=== PATIENT | male | born 1990 | race Caucasian/White ===

== ENCOUNTER 2019-01-06 14:22 | Outpatient (CLI) | payer OTHER ==
[2019-01-06 16:42] VITALS: BP 127/75
--- NOTE | 2019-01-06 16:42 | SLEEP CARE CONSULTATION ---
Information from patient questionnaire entered by Kristine Leblanc. I have reviewed and concur with the information entered by Kristine Leblanc. This document represents the service I personally performed and the decisions made by me, Juana Torres MD, [facility]. History of Present Illness Reason for Visit: New patient Chief Complaint: reports: Unrefreshed sleep, Snoring, Excessive daytime sleepiness, Observed pauses in breathing, Fatigue, Frequent awakenings at night Duration of Symptoms: 9 years Usual bedtime: 2130 Time it takes to fall asleep: under 5 minutes Snores at night: Yes (a lot) Observed to quit breathing while asleep: Yes Sleeps alone due to snoring: No Number of times waking at night: 3 Reasons for waking at night: reports: Snoring, Bathroom Toss, Turn, or Twitch while sleeping: Yes Recalls having dreams: Yes Usually gets out of bed at: 0545 Feels refreshed in the morning: No Morning headache: Yes Sleepy or fatigued during the day: Yes Ever fallen asleep while driving: No Takes day naps: No Dreams during day naps: No Prior sleep studies: No Additional HPI information: I had the pleasure of seeing Mr. Guy today regarding the possibility of him having a sleep disorder. As you know, he is a 28 year old gentleman who complains of loud snore, observed apneas, frequent awakenings, unrefreshed sleep, morning headache, and excessive daytime sleepiness for the past 9 years. - Parasomnia Symptoms Ever been unable to move upon waking from sleep: Yes Walks in sleep: No Talks in sleep: No Ever acted out dreams in sleep: No Ever felt weak in the knees when startled or emotional: No Bothered by creepy, crawly, restless sensations in legs: No Problems with memory or concentration: Yes Subjective Initial [place] Sleepiness Scale score: 5 Social History The patient's occupation is active . Patient is Single and lives in [place]. Have you smoked in the past 12 months: No Alcohol use: Yes Alcohol amount and frequency: 1 drink/weekend Caffeine use: Yes Caffeine amount and frequency: 2/day Family History Family history of sleep disordered breathing: Yes Family Hx Sleep Apnea: Father: Sleep apnea - Treated (uncle), Grandparent: Sleep apnea - Treated, Other: Sleep apnea - Treated Allergies and Home Medications Drug allergies reviewed: Yes Home medication list reviewed: Yes Review of Systems Cardiovascular: denies: high blood pressure, palpitations, chest pain, irregular heart rate or pulse, leg or foot swelling, have to sleep sitting up, other Respiratory: denies: shortness of breath, wheeze, sputum production, chronic cough, other Gastrointestinal: denies: heartburn, difficulty swallowing, nausea, vomitting, diarrhea, abdominal pain, other Urinary: denies: incontinence, frequency, urgency, impotence, other Neurological: denies: headaches, seizure, head trauma, disorientation, speech dysfunction, gait or balance problems, fainting or unconsciousness, other Psychiatric: denies: Attention Deficit Hyperactivity, anxiety, depression, mood disorder, claustrophobia, other Ear/Nose/Throat: denies: nasal congestion, sinus problems, nose bleeds, dry mouth/throat, hoarseness, injury to nose, tonsillectomy, wisdom teeth removed, other Endocrine: denies: thyroid disease, history of goiter, sluggishness, too hot or cold, excessive thirst, increased appetite, increased urination, unexplained weakness, other Musculoskeletal: denies: joint pain, neck pain, back pain, joint swelling, muscle pain or cramping, mobility problems, other Immunologic: denies: sneezing, rash, itching, allergies to food or environment, other Physical Exam Vital signs obtained and entered by: Dr. Torres Blood Pressure: 127/75 Cuff size: regular Heart Rate: 59 O2 Saturation: 98 Height: 5 ft 10 in Weight: 191 lb Body Mass Index: 27.3 BMI Classification: Overweight Neck circumference: 15.5 Mood/affect: normal HEENT: No craniofacial malformation Nostrils: patent to airflow Turbinates: normal Septum: midline Mouth and throat: narrow oropharynx Soft palate: long Hard palate: normal Uvula: normal Uvula visualization: 50% Mallampati Class II Tongue: normal in size Tonsils: small Chin and jaw: normal size and position Neck: normal w/o lymphadenopathy or thyromegaly Heart: regular rate and rhythm Lungs: clear bilaterally Abdomen: soft, non-tender Extremities: no edema or clubbing Neurologic: intact, no focal deficits Impression and Plan IMPRESSION: 1. Obstructive Sleep Apnea-Hypopnea Syndrome, as suggested by history of loud and irregular snoring, observed cessation of breath while asleep, frequent awakenings during the night, unrefreshed sleep, cognitive impairment, and daytime hypersomnolence. Narrow oropharynx and obesity are common predisposing factors for obstructive sleep apnea-hypopnea syndrome. Pathophysiology of sleep-disordered breathing was discussed. I recommend proceeding to polysomnography to confirm the diagnosis and to assess severity. If he has significant sleep disordered breathing, a manual CPAP titration study will also be performed to find the optimal treatment pressure. I informed the patient of what the sleep studies involve and after some discussion, he agreed to proceed. Plan: 1. Schedule polysomnography + manual CPAP titration study and return in 1 to 2 weeks after the study to discuss result and initiate therapy. 2. Avoid long distance driving or when feeling sleepy. 3. Avoid alcohol, sedative and muscle relaxant around bedtime. I spent 100% of this 20 minute visit face to face with the patient with greater than 50% of this was spent time counseling the patient and coordination of care.
== END 2019-01-06 14:23 | disposition home or self-care (01) ==
LOC: SC 14:22
PROVIDERS: ATTEND Internal Medicine Pulmonary Disease
DX: R06.83 Snoring (principal); R06.81 Apnea, not elsewhere classified; G47.8 Other sleep disorders; R41.89 Other symptoms and signs involving cognitive functions and awareness; G47.10 Hypersomnia, unspecified
CPT/HCPCS: 99203; 99212

== ENCOUNTER 2019-02-03 20:15 | Outpatient (CLI) | payer OTHER | END 2019-02-03 20:16 | disposition home or self-care (01) | LOC: SC 20:15 | PROVIDERS: ATTEND Internal Medicine Pulmonary Disease | DX: R06.83 Snoring (principal); R06.81 Apnea, not elsewhere classified; G47.10 Hypersomnia, unspecified | CPT/HCPCS: 95810 ==

== ENCOUNTER 2019-02-25 13:05 | Outpatient (CLI) | payer OTHER ==
--- NOTE | 2019-02-25 14:09 | SLEEP CARE CONSULTATION ---
Information from patient questionnaire entered by Cassy Mensah. I have reviewed and concur with the information entered by Cassy Mensah. This document represents the service I personally performed and the decisions made by me, Bernadine Issa RN, MSN, [employer]. History of Present Illness Initial [place] Sleepiness Scale score: 5 Current [place] Sleepiness Scale score: 13 Additional HPI information: JULIENNE SOARES JR returns for follow up of the recently performed polysomnography and informed of the findings. I explained the pathophysiology behind obstructive sleep apnea. Patient does not have significant sleep disordered breathing but has elevated AHI in supine position so advised positional therapy. Methods to achieve positional management therapy were discussed; such as, positioning with pillows, wearing a T-shirt with tennis balls sewn into the back, Rematee shirt, Zzomba belt and Slumberbump belt. Pamphlets provided on how to obtain the commercially available products. Patient has light to moderate snoring. Snoring and apnea risk can be reduced by weight loss. Weight loss is best achieved with diet consult if needed. Snoring can also be treated with an oral appliance from a dentist. Advised to check insurance coverage if wants to consider. At this time he does not want to use a oral appliance but will consider. In addition, an ENT evaluation can be do to see if other treatment is indicated. He reports difficulty breathing through hi s nose rarely. Patient counseled not drink alcohol less than 4 hours before bedtime as it can increase snoring and apnea. Patient does not drink alcohol. Patient was cautioned about risks of drowsy driving until sleepiness symptoms resolve. Patient denies drowsy driving. [facility] patient education on snoring and sleep apnea given and reviewed. Sleep Study - Polysomnography Polysomnography findings: The quality of the study is good. The patient had slightly reduced sleep efficiency due to a prolonged awakening in the second half of the study. The sleep architecture was normal. Respiratory monitoring showed no significant sleep disordered breathing (AHI = 2.1) or hypoxia (kiara oxygen saturation of 94%). The few respiratory events occurred almost exclusively during the brief supine sleep (supine AHI = 21.0; non-supine = 0.94). Snore was light to moderate in intensity. There was no significant periodic leg movement of sleep. Cardiac rhythm was normal sinus rhythm without significant arrhythmia. No abnormal behavior (parasomnia) observed during the night. Allergies and Home Medications Known drug allergies: Yes Home medication list reviewed: No (no medications) Physical Exam Blood Pressure: 120/80 Cuff size: long Heart Rate: 61 O2 Saturation: 98 Height: 5 ft 10 in Weight: 193 lb 12.8 oz (wearing fatigues and boots ) Body Mass Index: 27.8 BMI Classification: Overweight Impression and Plan Snoring but no significant sleep disordered breathing except supine. Thus patient advised to used positional therapy. Patient advised that often weight loss will reduce snoring as well as apnea risk. An oral appliance can also be used for snoring if determines to try later. This would require a dental consul tation. Patient cautioned not to use other online appliances as can cause bite issues. A list of accredited dentists in area and one local dentist who makes oral appliances given. Patient is advised to check if insurance will cover. An ENT consult can also be helpful to determine if any other treatment is an option. Patient will follow up in 2 months to see if benefit from treatment in reducing sleepiness symptoms. * Positional therapy * Attempt to lose some weight * Avoid alcohol consumption near bedtime * The patient is cautioned about driving until sleepiness is completely resolved. * Return in 2 months for follow up. I spent 100% of this 30 minute visit face to face with the patient with greater than 50% of this was spent time counseling the patient and coordination of care.
[2019-02-25 14:10] VITALS: BP 120/80
== END 2019-02-25 13:06 | disposition home or self-care (01) ==
LOC: SC 13:05
PROVIDERS: ATTEND Nurse Practitioner Family
DX: R06.83 Snoring (principal); E66.3 Overweight; Z68.27 Body mass index [BMI] 27.0-27.9, adult
CPT/HCPCS: 99212; 99214